=== PATIENT | male | born 1980 | race Two or more races ===

== ENCOUNTER 2017-02-10 19:25 | Emergency (ER) | payer OTHER ==
[2017-02-10 19:34] VITALS: TEMP 98.4
[2017-02-10] MEDS ORDERED: LIDOCAINE 2% VISCOUS 15 ML UDCUP PO ONE (19:45)
[2017-02-10] MEDS ORDERED: FAMOTIDINE 20 MG TAB PO ONE (19:45)
[2017-02-10] MEDS ORDERED: HYOSCYAMINE SULFATE 0.125 MG TAB PO ONE (19:45)
[2017-02-10] MEDS ORDERED: MAG HYDROX/AL HYDROX/SIMETH 30 ML UDCUP PO ONE (19:45)
--- NOTE | 2017-02-10 19:45 | EDPHY ---
H & P Stated Complaint: abd pain Time Seen by Provider: 02/10/17 19:36 HPI/ROS: CHIEF COMPLAINT: Dark stool HISTORY OF PRESENT ILLNESS: The patient is a 36-year-old man who comes to the emergency department complaining of intermittent left upper quadrant pain over the last week and now dark stool. No diarrhea. No fevers. No vomiting. No significant medical history. REVIEW OF SYSTEMS: Constitutional: denies: chills, fever, recent illness, recent injury EENTM: denies: blurred vision, double vision, nose congestion Respiratory: denies: cough, shortness of breath Cardiac: denies: chest pain, irregular heart rate, lightheadedness, palpitations Gastrointestinal/Abdominal: See HPI denies: abdominal pain, diarrhea, nausea, vomiting Genitourinary: denies: dysuria, frequency, hematuria, pain Musculoskeletal: denies: joint pain, muscle pain Skin: denies: lesions, rash, jaundice, bruising Neurological: denies: headache, numbness, paresthesia, tingling, dizziness, weakness Hematologic/Lymphatic: denies: blood clots, easy bleeding, easy bruising Immunologic/allergic: denies: HIV/AIDS, transplant EXAM: GENERAL: Well-appearing, well-nourished and in no acute distress. HEAD: Atraumatic, normocephalic. EYES: Pupils equal round and reactive to light, extraocular movements intact, sclera anicteric, conjunctiva are normal. ENT: TMs normal, nares patent, oropharynx clear without exudates. Moist mucous membranes. NECK: Normal range of motion, supple without lymphadenopathy or JVD. LUNGS: Breath sounds clear to auscultation bilaterally and equal. No wheezes rales or rhonchi. HEART: Regular rate and rhythm without murmurs, rubs or gallops. ABDOMEN: Soft, nontender, normoactive bowel sounds. No guarding, no rebound. No masses appreciated. exam, no visible hemorrhoids or fissure, no tenderness with rectal exam, darkened stool sent to lab BACK: No CVA tenderness, no spinal tenderness, step-offs or deformities EXTREMITIES: Normal range of motion, no pitting or edema. No clubbing or cyanosis. NEUROLOGICAL: Cranial nerves II through XII grossly intact. Normal speech, normal gait. 5/5 strength, normal movement in all extremities, normal sensation PSYCH: Normal mood, normal affect. SKIN: Warm, dry, normal turgor, no visible rashes or lesions. Source: Patient, Family Exam Limitations: No limitations - Personal History Current Tetanus/Diphtheria Vaccine: Yes Current Tetanus Diphtheria and Acellular Pertussis (TDAP): Yes - Medical/Surgical History Hx Asthma: Yes Hx Chronic Respiratory Disease: No Hx Diabetes: No Hx Cardiac Disease: No Hx Renal Disease: No Hx Cirrhosis: No Hx Alcoholism: Yes Hx HIV/AIDS: No Hx Splenectomy or Spleen Trauma: No Other PMH: R shoulder surgery, ARJUN ankle surgery - Family History Significant Family History: No pertinent family hx - Social History Smoking Status: Current some day smoker Alcohol Use: Sober Drug Use: None Constitutional: Initial Vital Signs Temperature (C) 36.9 C 02/10/17 19:31 Heart Rate 80 02/10/17 19:31 Respiratory Rate 16 02/10/17 19:31 Blood Pressure 134/87 H 02/10/17 19:31 O2 Sat (%) 96 02/10/17 19:31 O2 Delivery Mode Room Air Allergies/Adverse Reactions: Sulfa (Sulfonamide Antibiotics) Allergy (Verified 02/10/17 19:29) Home Medications: Medication Instructions Recorded Famotidine [Pepcid 20 MG (OTC)] 20 mg PO BID #30 tab 02/10/17 Fish Oil 02/10/17 Multi-Vitamin Daily 02/10/17 Strattera 02/10/17 VITAMIN D 02/10/17 Medical Decision Making ED Course/Re-evaluation: 8:00 p.m. we discussed the patient's test results which are reassuring. He is currently asymptomatic. We discussed treatment plan. He does feel better with GI cocktail. I will have him take Pepcid daily and follow up with his primary Dr. Lott. He agrees with this plan. Differential Diagnosis: Partial list of the Differential diagnosis considered include but were not limited to; peptic ulcer disease, anemia, and although unlikely based on the history and physical exam, I also considered biliary disease, appendicitis, hemorrhoid, diverticulitis. I discussed these differential diagnoses and the plan with the patient as well as the usual and expected course. The patient understands that the diagnosis is provisional and that in medicine we are not always correct and that further workup is often warranted. Usual and customary warnings were given. All of the patient's questions were answered. The patient was instructed to return to the emergency department should the symptoms at all worsen or return, otherwise to followup with the physician as we discussed. - Data Points Medications Given: Discontinued Medications Al Hydroxide/Mg Hydroxide (Maalox Susp) 30 ml PO ONCE ONE Stop: 02/10/17 19:46 Last Admin: 02/10/17 20:01 Dose: 30 ml Famotidine (Pepcid) 20 mg PO EDNOW ONE Stop: 02/10/17 19:46 Last Admin: 02/10/17 20:00 Dose: 20 mg Hyoscyamine Sulfate (Levsin, Hyomax-Sl) 0.25 mg PO ONCE ONE Stop: 02/10/17 19:46 Last Admin: 02/10/17 20:00 Dose: 0.25 mg Lidocaine (Lidocaine 2% Viscous) 15 ml PO ONCE ONE Stop: 02/10/17 19:46 Last Admin: 02/10/17 20:00 Dose: 15 ml Departure - Departure Disposition: Home, Routine, Self-Care Clinical Impression: Peptic ulcer disease Condition: Fair Instructions: Peptic Ulcer (ED) Referrals: ALFREDO LOTT [Primary Care Provider] - As per Instructions Prescriptions: Famotidine [Pepcid 20 MG (OTC)] 20 mg PO BID #30 tab
[2017-02-10 20:28] VITALS: BP 130/78; PULSE 70; RESP 14; O2SAT 94
== END 2017-02-10 20:27 | disposition home or self-care (01) ==
DX: K27.9 Peptic ulcer, site unspecified, unspecified as acute or chronic, without hemorrhage or perforation (principal); F17.200 Nicotine dependence, unspecified, uncomplicated; J45.909 Unspecified asthma, uncomplicated
CPT/HCPCS: 82947-QW